=== PATIENT | female | born 1980 | race Caucasian/White ===

== ENCOUNTER 2025-01-09 08:43 | Outpatient (CLI) | payer MEDICAID, SELFPAY ==
--- NOTE | 2025-01-09 09:00 | US_ITS ---
WS: [id number] US transvaginal [id number] HISTORY: N94.6 - Dysmenorrhea, unspecified COMPARISON: None available. Uterus: 7.6 cm x 4.9 cm x 4.3 cm. Normal size anteverted uterus. No fibroid or mass. Endometrium: 0.9 cm. Normal. No increased vascularity. Right ovary: 3.5 cm x 1.6 cm x 2.6 cm. Normal size and vascularity, no cystic or solid masses. Left ovary: 3.2 cm x 3.1 cm x 1.5 cm. Normal size and vascularity, no cystic or solid masses. Prominent varicosity noted in the LEFT adnexa. No free fluid in the cul-de-sac. US/US transvaginal [id number] IMPRESSION: 1. Normal uterus and endometrium. 2. No adnexal mass. 3. Prominent LEFT adnexal varicosities.
== END 2025-01-09 08:44 | disposition home or self-care (01) ==
LOC: RAD 08:45
PROVIDERS: Visit Provider Nurse Practitioner Women's Health
DX: N94.6 Dysmenorrhea, unspecified (principal); I86.8 Varicose veins of other specified sites
CPT/HCPCS: 76830